=== PATIENT | female | born 1995 | race American Indian/Alaskan Native ===

== ENCOUNTER 2017-12-31 15:51 | Emergency (ER) | payer BC ==
[2017-12-31 16:00] VITALS: TEMP 98.3
[2017-12-31] MEDS ORDERED: Sodium Chloride 0.9% 1,000 ML IV ONE (16:08)
[2017-12-31] MEDS ORDERED: Aspirin 325 mg EC Tablets PO STA (16:08)
--- NOTE | 2017-12-31 16:14 | C.PDOC ---
History Of Present Illness 22 year old female presents to the ER complaining of chest pain that began this morning and worsened throughout the day. Patient states chest pain has been intermittent for 2 months. She notes tight pressure in her chest like "someone sitting on me" with associated shortness of breath. Patient states pain worsens with deep inspiration. She recently went to her PMD and got blood work done but she is still waiting for results. Patient denies any back pain, leg swelling, nausea, numbness, weakness or fever. ARTURO Risk Score for UA/NSTEMI - ARTURO Risk Score Age > 64: NO 3 or more CAD Risk Factors: NO Known CAD (Stenosis greater than 50%): NO Aspirin use in past 7 days: NO Severe Angina: NO EKG ST changes greater than 0.5mm: NO Positive Cardiac Marker: NO ARTURO Score: 0 % risk at 14 days of: all cause mortality, new or recurrent OR, or severe recurrent ischemia requiring urgen revascularization: 5% Wells Criteria for PE - Wells Criteria for Pulmonary Embolism Clinical Signs and Symptoms of DVT: No P.E is #1 Diagnosis, or Equally Likely: No Heart Rate >100: No Immobilization at least 3 days;Surgery previous 4 weeks: No Previous, objectively diagnosed PE or DVT: No Hemoptysis: No Malignancy w/treatment within 6 months, or palliative: No Total Score: 0 Time Seen by Provider: 12/31/17 16:00 Chief Complaint (Nursing): Chest Pain History Per: Patient History/Exam Limitations: no limitations Onset/Duration Of Symptoms: Days Current Symptoms Are (Timing): Still Present Quality: Tightness, Pressure Exacerbating Factors: Deep Breathing Past Medical History Reviewed: Historical Data, Nursing Documentation, Vital Signs Vital Signs: Last Vital Signs Temp 98.3 F 12/31/17 15:56 Pulse 68 12/31/17 17:22 Resp 16 12/31/17 17:22 BP 145/80 12/31/17 17:22 Pulse Ox 98 12/31/17 17:31 - Medical History PMH: No Chronic Diseases Other Surgeries: Hx of surgeries Family History: States: No Known Family Hx - Social History Hx Alcohol Use: Yes Hx Substance Use: No - Immunization History Hx Tetanus Toxoid Vaccination: Yes Hx Influenza Vaccination: Yes Hx Pneumococcal Vaccination: No Review Of Systems Constitutional: Negative for: Fever, Chills Cardiovascular: Positive for: Chest Pain Respiratory: Positive for: Shortness of Breath Gastrointestinal: Negative for: Vomiting, Diarrhea Musculoskeletal: Positive for: Shoulder Pain. Negative for: Back Pain Physical Exam - Physical Exam Appears: Non-toxic, No Acute Distress Skin: Normal Color, Warm, Dry Head: Atraumatic, Normacephalic Eye(s): bilateral: Normal Inspection Oral Mucosa: Moist Neck: Normal ROM Chest: Symmetrical, Tenderness (anterior midsternal) Cardiovascular: Rhythm Regular, No Murmur Respiratory: No Rales, No Rhonchi, No Wheezing, Other (Shallow breathing, poor effort but clear lung sounds bilaterally) Gastrointestinal/Abdominal: Soft, No Tenderness Extremity: Bilateral: Atraumatic, No Pedal Edema, Normal Color And Temperature, Normal ROM Pulses: Left Radial: Normal Neurological/Psych: Oriented x3, Normal Speech Gait: Steady ED Course And Treatment - Laboratory Results Result Diagrams: 12/31/17 16:21 12/31/17 16:21 Lab Interpretation: No Acute Changes ECG: Interpreted By Me, Viewed By Me ECG Rhythm: Sinus Rhythm ECG Interpretation: No Acute Changes Rate From EC O2 Sat by Pulse Oximetry: 98 (RA) Pulse Ox Interpretation: Normal - Radiology CXR: Interpreted by Me, Viewed By Me CXR Interpretation: Yes: No Acute Disease. No: Infiltrates, Cardiomegaly, Pnemothorax Medical Decision Making Medical Decision Making: Impression: Chest pain Orders: - EKG - Labs - Aspirin 325mg PO - UA - HCG Patient was assessed and examined. Patient complains of chest pain and shortness of breath. Orders placed in for blood work. Urine collected and sent to lab for analysis. EKG obtained and reviewed with no ischemic changes. Labs reviewed and unremarkable, negative troponin. Based on negative findings on lab analysis, EKG, and CXR very unlikely presentation for ACS. Low suspicion for PE or DVT. Patient reevaluated and reports feeling better. She denies having chest pain and lungs clear with adequate oxygen saturation. Discussed results with patient. Advise on follow up with cardiology outpatient if patient persists. Disposition Counseled Patient/Family Regarding: Diagnosis, Need For Followup - Disposition Referrals: Jomar Rodríguez MD [Medical Doctor] - Disposition: HOME/ ROUTINE Disposition Time: 17:20 Condition: GOOD Additional Instructions: Take Motrin or Aspirin for any pain Follow up outpatient with your primary physician and cardiology for further evaluation Return to the emergency department at any time if symptoms persist or worsen. Instructions: Pleuritic Chest Pain (DC) Forms: [facility] (Greenlandic) - POA Present On Arrival: None - Clinical Impression Clinical Impression: Pleuritic pain, Chest discomfort - PA / [employer]CR[employer]ET [employer]ER / Resident Statement MD/DO has reviewed & agrees with the documentation as recorded. - Scribe Statement The provider has reviewed the documentation as recorded by the Scribe Yanira Velázquez All medical record entries made by the Scribe were at my direction and personally dictated by me. I have reviewed the chart and agree that the record accurately reflects my personal performance of the history, physical exam, medical decision making, and the department course for this patient. I have also personally directed, reviewed, and agree with the discharge instructions and disposition.
[2017-12-31] MEDS ORDERED: Sodium Chloride 0.9% 1,000 ML ONE (16:23)
[2017-12-31] MEDS ORDERED: Aspirin 325 mg EC Tablets PO ONE (16:23)
[2017-12-31 16:26] LABS: BASO # 0.1 K/uL (0.0-0.2); BASO % 1.2 % (0.0-2.0); EOS # 0.2 K/uL (0.0-0.7); EOS % 2.4 % (0.0-4.0); HEMOGLOBIN 13.5 g/dL (11.0-16.0); LYMPH # 2.4 K/uL (1.0-4.3); LYMPH % 31.4 % (20.0-40.0); MEAN CELL VOLUME 95.5 fL (81.0-99.0); MEAN CORPUSCULAR HEMOGLOBIN 33.1 pg (27.0-31.0); MEAN CORPUSCULAR HGB CONC 34.7 g/dL (33.0-37.0); MEAN PLATELET VOLUME 7.3 fL (7.2-11.7); MONO # 0.9 K/uL (0.0-0.8); MONO % 11.7 % (0.0-10.0); NEUT # 4.1 K/uL (1.8-7.0); NEUT % 53.3 % (50.0-75.0); NRBC % 0.1 % (0.0-2.0); RBC 4.07 Mil/uL (3.80-5.20); RED CELL DISTRIBUTION WIDTH 12.6 % (11.5-14.5); WHITE BLOOD COUNT 7.7 K/uL (4.8-10.8)
[2017-12-31 16:33] LABS: INR 1.1; PROTHROMBIN TIME 12.1 SECONDS (9.7-12.2)
[2017-12-31 16:34] LABS: SQUAMOUS EPITHIAL 10 /hpf (0-5); URINE BILIRUBIN NEGATIVE (NEGATIVE); URINE BLOOD NEGATIVE (NEGATIVE); URINE CLARITY Hazy (Clear); URINE COLOR Yellow (YELLOW); URINE GLUCOSE (UA) NORMAL (Normal); URINE LEUKOCYTE ESTERASE NEG Leu/uL (Negative); URINE PROTEIN 1+ mg/dL (NEGATIVE); URINE UROBILINOGEN NORMAL mg/dL (0.2-1.0)
[2017-12-31 16:38] LABS: ALB/GLOB RATIO 1.3 (1.0-2.1); ALBUMIN 4.5 g/dL (3.5-5.0); ALT/SGPT 43 U/L (9-52); AST/SGOT 79 U/L (14-36); BLOOD UREA NITROGEN 6 mg/dL (7-17); CALCIUM 9.1 mg/dl (8.6-10.4); GFR AFRICAN-AMERICAN > 60; GFR NON-AFRICAN AMERICAN > 60
[2017-12-31 16:49] LABS: BARBITURATES, UR NEGATIVE (NEGATIVE); BENZODIAZEPINES, UR NEGATIVE (NEGATIVE); OPIATES, UR NEGATIVE (NEGATIVE); PHENCYCLIDINE, UR NEGATIVE (NEGATIVE)
[2017-12-31 17:03] LABS: B-TYPE NATRIURETIC PEPTIDE 30.4 pg/mL (0-450); CK-MB 0.56 ng/mL (0.0-3.38)
[2017-12-31 17:22] VITALS: BP 145/80; PULSE 68; RESP 16
--- NOTE | 2017-12-31 17:26 | RAD ---
HISTORY: SOB COMPARISON: No prior. TECHNIQUE: Chest PA and lateral FINDINGS: LUNGS: No active pulmonary disease. PLEURA: No significant pleural effusion identified. No pneumothorax apparent. CARDIOVASCULAR: Normal. OSSEOUS STRUCTURES: No significant abnormalities. VISUALIZED UPPER ABDOMEN: Normal. OTHER FINDINGS: None. IMPRESSION: No active disease.
[2017-12-31 17:31] VITALS: O2SAT 98
--- NOTE | 2018-01-01 21:26 | CARD ---
APPROVED REPORT EKG Measurement Heart [id number] <Conclusion> Normal sinus rhythm with sinus arrhythmia Normal ECG
== END 2017-12-31 17:42 | disposition home or self-care (01) ==
LOC: C.ER 15:51
DX: R07.81 Pleurodynia (principal)
CPT/HCPCS: 71046; 80053; 81001; 83880; 84484; 84703; 85025; 85610; 85730; 93005; 96360; 99285; G0480; J7030

== ENCOUNTER 2018-02-26 17:32 | Emergency (ER) | payer BC ==
[2018-02-26 17:55] VITALS: TEMP 98; O2SAT 100
--- NOTE | 2018-02-26 18:27 | C.PDOC ---
History Of Present Illness 22 year old female patient with FHx of heart disease and x6 months presents to the ER with c/o left chest pain that radiates to the jaw and throat. Patient reports her symptoms has been constant for x2 months but intermittently worse. When worse, patient feels SOB, dizziness, light headedness , numbing and tightness of throat. Patient was seen in ED on 12/31 for same complaint. Visit shows nml ekg and nml troponin. Patient was also seen by indian blanket weaver x3 weeks ago and has a pending stress test by the end of February. Patient tried taking Advil/Tylenol with no relief. Time Seen by Provider: 02/26/18 18:09 Chief Complaint (Nursing): Chest Pain History Per: Patient History/Exam Limitations: no limitations Onset/Duration Of Symptoms: Days (x2 months ), Other (contsant) Current Symptoms Are (Timing): Still Present Past Medical History Reviewed: Historical Data, Nursing Documentation, Vital Signs Vital Signs: Last Vital Signs Temp 98 F 02/26/18 17:49 Pulse 80 02/26/18 17:49 Resp 18 02/26/18 17:49 BP 154/94 H 02/26/18 17:49 Pulse Ox 100 02/26/18 18:33 Family History: States: Unknown Family Hx - Social History Hx Alcohol Use: Yes Hx Substance Use: No - Immunization History Hx Tetanus Toxoid Vaccination: Yes Hx Influenza Vaccination: Yes Hx Pneumococcal Vaccination: No Review Of Systems Except As Marked, All Systems Reviewed And Found Negative. ENT: Positive for: Throat Pain (and tightness), Other (jaw pain radiated from chest pain) Cardiovascular: Positive for: Chest Pain, Light Headedness Respiratory: Positive for: Shortness of Breath Neurological: Positive for: Numbness (and tightness on throat ), Dizziness Physical Exam - Physical Exam Appears: Non-toxic, Other (tearful and ginchy) Skin: Normal Color, Warm, Dry Chest: Symmetrical, No Deformity, Other (reproducible pain with palpation on chest) Cardiovascular: Rhythm Regular, No Murmur Respiratory: Normal Breath Sounds, No Rales, No Rhonchi, No Wheezing Gastrointestinal/Abdominal: Soft, Tenderness (RUQ ) Extremity: Normal ROM (x4), No Pedal Edema, Capillary Refill (<2 sec), No Deformity, No Swelling Neurological/Psych: Oriented x3, Normal Speech ED Course And Treatment ECG: Interpreted By Me, Viewed By Me ECG Rhythm: Sinus Rhythm ECG Interpretation: Normal, No Acute Changes Interpretation Of ECG: Normal, no ST/T elevation or depression Rate From EC O2 Sat by Pulse Oximetry: 100 (RA) Medical Decision Making Medical Decision Making: Impression: anxiety Plans: -- ativan Reassess: Patient is resting comfortably. Tolerating PO. Patient is instructed to follow through with stress test with her indian blanket weaver. Disposition Counseled Patient/Family Regarding: Diagnosis, Need For Followup, Rx Given - Disposition Disposition: HOME/ ROUTINE Disposition Time: 18:56 Condition: STABLE Additional Instructions: follow up with your doctor. You may need an ultrasound for your gall bladder. Take Ativan when you feel very anxious and tearful. Prescriptions: LORazepam [Ativan] 1 mg PO TID PRN #12 tab PRN Reason: Anxiety Instructions: Anxiety, Adult (DC) Forms: [facility] (Argentine), General Discharge Instructions - Clinical Impression Clinical Impression: Anxiety - Scribe Statement The provider has reviewed the documentation as recorded by the Scribquinton Sandoval Do Provider Attestation: All medical record entries made by the Scribe were at my direction and personally dictated by me. I have reviewed the chart and agree that the record accurately reflects my personal performance of the history, physical exam, medical decision making, and the department course for this patient. I have also personally directed, reviewed, and agree with the discharge instructions and disposition.
[2018-02-26 19:11] VITALS: BP 130/83; PULSE 78; RESP 20
== END 2018-02-26 19:16 | disposition home or self-care (01) ==
LOC: C.ER 17:32
DX: F41.9 Anxiety disorder, unspecified (principal)